=== PATIENT | female | born 1960 | race Caucasian/White ===

== ENCOUNTER 2017-05-13 07:54 | Day surgery (SDC) | payer BC ==
[~2017-05-13 07:54] MED LIST: Metoclopramide 10 MG/2 ML SDV IV PRN; Sodium Chloride 0.9% 1,000 ML IV SCH; Sodium Chloride 0.9% 10 ML Syringe FLUSH PRN
[2017-05-13] MEDS ORDERED: Propofol 200 MG/20 ML SDV ONE (09:45)
[2017-05-13 13:46] VITALS: BP 111/67
== END 2017-05-13 11:55 | disposition home or self-care (01) ==
LOC: LB.SDS 07:54
PROVIDERS: ATTEND Surgery
DX: Z12.11 Encounter for screening for malignant neoplasm of colon (principal)
CPT/HCPCS: 45378; J2704